=== PATIENT | male | born 1945 | race Caucasian/White ===

== ENCOUNTER 2016-07-11 09:25 | Inpatient (IN) | payer MEDICARE ==
[~2016-07-11] VITALS: Ht 175.3 cm; Wt 106.4 kg
[2016-07-11] MEDS ORDERED: SODIUM CHLORIDE FLUSH 10ML SYR IVF ONE (10:00)
[2016-07-11] MEDS ORDERED: ASPIRIN 81 MG TABLET CHEW PO ONE (10:00)
[2016-07-11] MEDS ORDERED: ASPIRIN 81 MG TABLET CHEW ONE (10:19)
[2016-07-11] MEDS ORDERED: ALBUTEROL/IPRATROPIUM 2.5MG/0.5MG, 3 ML NPPB SCH (10:30)
[2016-07-11 10:36] LABS: BLOOD UREA NITROGEN 25 mg/dL (7-18)
[2016-07-11 10:41] LABS: ASPARTATE AMINO TRANSFERASE 50 U/L (15-37)
[2016-07-11] MEDS ORDERED: BISACODYL 10 MG SUPP PR PRN (12:30)
[2016-07-11] MEDS ORDERED: SODIUM CHLORIDE FLUSH 10ML SYR IVF PRN (12:30)
[2016-07-11] MEDS ORDERED: ENALAPRILAT 1.25 MG/ML, 2ML IVPush PRN (12:30)
[2016-07-11] MEDS ORDERED: ACETAMINOPHEN 325 MG TABLET PO PRN (12:30)
[2016-07-11] MEDS ORDERED: DOCUSATE 100 MG CAPSULE PO PRN (12:30)
[2016-07-11] MEDS ORDERED: LABETALOL 5MG/ML 40ML VIAL IVPush PRN (12:30)
[2016-07-11] MEDS ORDERED: ONDANSETRON ODT 4 MG PO PRN (12:30)
[2016-07-11] MEDS ORDERED: hydrALAzine 20 MG/ML, 1ML IVPush PRN (12:30)
[2016-07-11] MEDS ORDERED: POLYETHYLENE GLYCOL 17 GM PACKET PO PRN (12:30)
[2016-07-11] MEDS ORDERED: AMLODIPINE 5 MG TABLET PO ONE (13:00)
[2016-07-11 13:16] VITALS: BP 183/114
[2016-07-11] MEDS: morphine SULFATE 10 MG/ML, 1ML IVPush PRN (13:18)
[2016-07-11] MEDS: FUROSEMIDE 40 MG/4 ML IV ONE ×2 (13:18→14:44)
[2016-07-11] MEDS: HEPARIN 5,000 UNITS/ML, 1ML SQ SCH ×2 (13:18→20:50)
[2016-07-11 14:01] LABS: HEPATITIS C VIRUS ANTIBODY Nonreactive (Nonreactive)
[2016-07-11] MEDS ORDERED: AMLO10TA2 PO (15:04)
[2016-07-11] MEDS ORDERED: LABETALOL 5MG/ML, 20ML ONE (15:42)
[2016-07-11 16:03] VITALS: BP 188/86
[2016-07-11] MEDS ORDERED: FUROSEMIDE 40 MG/4 ML IV ONE (17:00)
[2016-07-11 17:38] VITALS: BP 170/93
[2016-07-11 17:46] LABS: IS PT STATUS REG ER OR PRE ER? NO
[2016-07-11] MEDS: GUAIFENESIN/DM 100-10MG, 5ML UDC PO PRN (17:56)
[2016-07-11 20:48] VITALS: BP 150/87
[2016-07-12 00:57] LABS: IS PT STATUS REG ER OR PRE ER? NO
[2016-07-12 03:30] VITALS: BP 163/90
[2016-07-12] MEDS: HEPARIN 5,000 UNITS/ML, 1ML SQ SCH ×3 (05:02→21:50)
[2016-07-12] MEDS: ASPIRIN 81 MG TABLET EC PO SCH (05:02)
[2016-07-12] MEDS: GUAIFENESIN/DM 100-10MG, 5ML UDC PO PRN (05:08)
[2016-07-12 06:25] LABS: BLOOD UREA NITROGEN 21 mg/dL (7-18)
[2016-07-12 06:37] LABS: ASPARTATE AMINO TRANSFERASE 49 U/L (15-37)
[2016-07-12 06:51] VITALS: BP 163/103
[2016-07-12] MEDS ORDERED: POTASSIUM CHLORIDE 20 MEQ PACKET PO SCH (08:00)
[2016-07-12] MEDS: morphine SULFATE 10 MG/ML, 1ML IVPush PRN ×2 (08:29→17:32)
[2016-07-12] MEDS: CARVEDILOL 12.5 MG TABLET PO SCH ×2 (10:40→17:14)
[2016-07-12] MEDS: SPIRONOLACTONE 25 MG TABLET PO SCH (10:40)
[2016-07-12] MEDS: LISINOPRIL 5 MG TABLET PO SCH (10:40)
[2016-07-12] MEDS: FUROSEMIDE 40 MG/4 ML IV SCH ×2 (10:41→17:14)
[2016-07-12 13:25] VITALS: BP 140/84
[2016-07-12] MEDS: POTASSIUM CHLORIDE 20 MEQ PACKET PO SCH (17:14)
[2016-07-12 20:07] VITALS: BP 129/82
[2016-07-13 02:25] VITALS: BP 105/51
[2016-07-13 05:33] LABS: ASPARTATE AMINO TRANSFERASE 54 U/L (15-37); BLOOD UREA NITROGEN 31 mg/dL (7-18)
[2016-07-13 05:44] VITALS: BP 105/73
[2016-07-13] MEDS: FUROSEMIDE 40 MG/4 ML IV SCH ×2 (05:48→18:00)
[2016-07-13] MEDS: ASPIRIN 81 MG TABLET EC PO SCH (05:50)
[2016-07-13] MEDS: CARVEDILOL 12.5 MG TABLET PO SCH (05:50)
[2016-07-13] MEDS: POTASSIUM CHLORIDE 20 MEQ PACKET PO SCH ×2 (05:53→18:00)
[2016-07-13] MEDS: HEPARIN 5,000 UNITS/ML, 1ML SQ SCH ×3 (05:53→22:50)
[2016-07-13 07:36] VITALS: BP_SYST 164; BP_SYST 64; BP_DIAS 67
[2016-07-13] MEDS: SPIRONOLACTONE 25 MG TABLET PO SCH (07:59)
[2016-07-13 08:53] LABS: BLOOD UREA NITROGEN 31 mg/dL (7-18)
[2016-07-13] MEDS: LISINOPRIL 5 MG TABLET PO SCH (13:16)
[2016-07-13] MEDS ORDERED: FLUTICASONE/VILANTEROL 100-25MCG/INH INH ONE (14:00)
[2016-07-13 14:12] VITALS: BP 111/76
[2016-07-13] MEDS: morphine SULFATE 10 MG/ML, 1ML IVPush PRN (15:31)
[2016-07-13] MEDS: BENZONATATE 100 MG CAPSULE PO SCH ×2 (18:00→22:49)
[2016-07-13 18:30] VITALS: BP 98/57
[2016-07-13] MEDS: CARVEDILOL 3.125 MG TABLET PO SCH (18:30)
[2016-07-13] MEDS: GUAIFENESIN ER 600 MG TABLET PO SCH (22:49)
[2016-07-14 02:00] VITALS: BP 132/88
[2016-07-14] MEDS: morphine SULFATE 10 MG/ML, 1ML IVPush PRN ×3 (03:16→16:44)
[2016-07-14 05:46] VITALS: BP 149/87
[2016-07-14] MEDS: CARVEDILOL 3.125 MG TABLET PO SCH ×2 (05:51→16:46)
[2016-07-14] MEDS: ASPIRIN 81 MG TABLET EC PO SCH (05:51)
[2016-07-14] MEDS: FUROSEMIDE 40 MG/4 ML IV SCH ×2 (05:51→16:46)
[2016-07-14] MEDS: POTASSIUM CHLORIDE 20 MEQ PACKET PO SCH ×2 (05:51→16:46)
[2016-07-14] MEDS: HEPARIN 5,000 UNITS/ML, 1ML SQ SCH ×2 (05:52→16:46)
[2016-07-14 06:30] LABS: BLOOD UREA NITROGEN 39 mg/dL (7-18)
[2016-07-14 06:58] VITALS: BP 134/85
[2016-07-14] MEDS: LISINOPRIL 5 MG TABLET PO SCH (09:51)
[2016-07-14] MEDS: BENZONATATE 100 MG CAPSULE PO SCH ×3 (09:51→20:19)
[2016-07-14] MEDS: GUAIFENESIN ER 600 MG TABLET PO SCH ×2 (09:51→20:19)
[2016-07-14] MEDS: FLUTICASONE/VILANTEROL 100-25MCG/INH INH SCH (09:51)
[2016-07-14] MEDS: SPIRONOLACTONE 25 MG TABLET PO SCH (09:51)
[2016-07-14 13:51] VITALS: BP 124/87
[2016-07-14 18:21] VITALS: BP 135/86
[2016-07-15] MEDS: HEPARIN 5,000 UNITS/ML, 1ML SQ SCH ×3 (00:24→16:06)
[2016-07-15 01:57] VITALS: BP 138/71
[2016-07-15 04:57] LABS: BLOOD UREA NITROGEN 40 mg/dL (7-18)
[2016-07-15] MEDS: POTASSIUM CHLORIDE 20 MEQ PACKET PO SCH ×2 (06:00→16:07)
[2016-07-15] MEDS ORDERED: POTASSIUM CHLORIDE 20 MEQ TAB.ER.PRT ONE (06:17)
[2016-07-15 06:25] VITALS: BP 139/8
[2016-07-15] MEDS: ASPIRIN 81 MG TABLET EC PO SCH (06:27)
[2016-07-15] MEDS: CARVEDILOL 3.125 MG TABLET PO SCH (06:27)
[2016-07-15] MEDS: FUROSEMIDE 40 MG/4 ML IV SCH ×2 (06:27→16:07)
[2016-07-15 07:00] VITALS: BP 125/85
[2016-07-15] MEDS ORDERED: OXYcodone IR 5MG TABLET ONE (08:28)
[2016-07-15] MEDS ORDERED: OXYcodone IR 5MG TABLET PO PRN (08:30)
[2016-07-15] MEDS: LISINOPRIL 5 MG TABLET PO SCH (08:37)
[2016-07-15] MEDS: BENZONATATE 100 MG CAPSULE PO SCH ×3 (08:37→21:01)
[2016-07-15] MEDS: SPIRONOLACTONE 25 MG TABLET PO SCH (08:37)
[2016-07-15] MEDS: FLUTICASONE/VILANTEROL 100-25MCG/INH INH SCH (08:37)
[2016-07-15] MEDS: GUAIFENESIN ER 600 MG TABLET PO SCH ×2 (08:37→21:01)
[2016-07-15 14:10] VITALS: BP 128/71
[2016-07-15] MEDS: CARVEDILOL 6.25 MG TABLET PO SCH (16:06)
[2016-07-15] MEDS: OXYcodone IR 5MG TABLET PO PRN ×2 (16:06→23:15)
[2016-07-15 20:34] VITALS: BP 118/73
[2016-07-15 21:00] VITALS: BP 122/85
[2016-07-16 01:11] VITALS: BP 136/88
[2016-07-16] MEDS: HEPARIN 5,000 UNITS/ML, 1ML SQ SCH ×3 (01:13→17:16)
[2016-07-16] MEDS: ASPIRIN 81 MG TABLET EC PO SCH (05:24)
[2016-07-16] MEDS: CARVEDILOL 6.25 MG TABLET PO SCH (05:25)
[2016-07-16 05:45] LABS: BLOOD UREA NITROGEN 36 mg/dL (7-18)
[2016-07-16 05:50] LABS: ASPARTATE AMINO TRANSFERASE 60 U/L (15-37)
[2016-07-16 08:06] VITALS: BP 143/89
[2016-07-16] MEDS ORDERED: REGADENOSON 0.4 MG/5 ML SYRINGE ONE (08:12)
[2016-07-16] MEDS: FLUTICASONE/VILANTEROL 100-25MCG/INH INH SCH (10:29)
[2016-07-16] MEDS: FUROSEMIDE 40 MG/4 ML IV SCH ×2 (10:30→20:56)
[2016-07-16] MEDS: POTASSIUM CHLORIDE 20 MEQ PACKET PO SCH ×2 (10:30→20:57)
[2016-07-16] MEDS: LISINOPRIL 5 MG TABLET PO SCH (10:31)
[2016-07-16] MEDS: BENZONATATE 100 MG CAPSULE PO SCH ×3 (10:31→20:57)
[2016-07-16] MEDS: SPIRONOLACTONE 25 MG TABLET PO SCH (10:31)
[2016-07-16] MEDS: GUAIFENESIN ER 600 MG TABLET PO SCH ×2 (10:31→20:56)
[2016-07-16] MEDS: OXYcodone IR 5MG TABLET PO PRN (14:22)
[2016-07-16 14:45] VITALS: BP 109/73
[2016-07-16] MEDS: CARVEDILOL 12.5 MG TABLET PO SCH (17:16)
[2016-07-16 20:55] VITALS: BP 119/78
[2016-07-17 02:15] VITALS: BP 128/79
[2016-07-17] MEDS: HEPARIN 5,000 UNITS/ML, 1ML SQ SCH ×3 (02:19→18:02)
[2016-07-17 05:47] LABS: BLOOD UREA NITROGEN 33 mg/dL (7-18)
[2016-07-17] MEDS: ASPIRIN 81 MG TABLET EC PO SCH (06:25)
[2016-07-17] MEDS: CARVEDILOL 12.5 MG TABLET PO SCH ×2 (06:25→17:54)
[2016-07-17] MEDS: POTASSIUM CHLORIDE 20 MEQ PACKET PO SCH ×2 (06:25→18:03)
[2016-07-17] MEDS: FUROSEMIDE 40 MG/4 ML IV SCH ×2 (09:00→09:07)
[2016-07-17] MEDS: BENZONATATE 100 MG CAPSULE PO SCH ×2 (09:07→17:54)
[2016-07-17] MEDS: FLUTICASONE/VILANTEROL 100-25MCG/INH INH SCH (09:07)
[2016-07-17] MEDS: LISINOPRIL 5 MG TABLET PO SCH (09:08)
[2016-07-17] MEDS: GUAIFENESIN ER 600 MG TABLET PO SCH (09:08)
[2016-07-17] MEDS: SPIRONOLACTONE 25 MG TABLET PO SCH (09:08)
[2016-07-17] MEDS: FUROSEMIDE 40 MG TABLET PO SCH ×2 (10:11→17:00)
[2016-07-17] MEDS: OXYcodone IR 5MG TABLET PO PRN (10:19)
[2016-07-17 13:13] VITALS: BP 141/86
[2016-07-17 13:14] VITALS: BP 141/86
[2016-07-17] MEDS ORDERED: CARV12.543 PO (17:02)
[2016-07-17] MEDS ORDERED: FURO40TA6 PO (17:02)
[2016-07-17] MEDS ORDERED: POTA20TA6 PO (17:02)
[2016-07-17] MEDS ORDERED: OXYC5TAB3 PO (17:02)
[2016-07-17] MEDS ORDERED: LISI5TAB7 PO (17:02)
[2016-07-17] MEDS ORDERED: SPIR25TA PO (17:02)
[2016-07-17] MEDS ORDERED: ASPI-621 PO (19:13)
== END 2016-07-17 19:57 | disposition home health service (06) | DRG 682 ==
LOC: ED 10:20 → 5SO 12:17
PROVIDERS: ADMIT Internal Medicine
PROC: HZ34ZZZ Individual Counseling for Substance Abuse Treatment, Interpersonal (ICD-10-PCS; principal; 2016-07-11)
DX: N17.9 Acute kidney failure, unspecified (principal); I50.23 Acute on chronic systolic (congestive) heart failure; E43 Unspecified severe protein-calorie malnutrition; J96.00 Acute respiratory failure, unspecified whether with hypoxia or hypercapnia; I13.0 Hypertensive heart and chronic kidney disease with heart failure and stage 1 through stage 4 chronic kidney disease, or unspecified chronic kidney disease; F10.288 Alcohol dependence with other alcohol-induced disorder; I42.6 Alcoholic cardiomyopathy; K70.31 Alcoholic cirrhosis of liver with ascites; N18.3 Chronic kidney disease, stage 3 (moderate); Z66 Do not resuscitate; Z87.891 Personal history of nicotine dependence; Z91.19 Patient's noncompliance with other medical treatment and regimen; Z68.34 Body mass index [BMI] 34.0-34.9, adult; Z90.89 Acquired absence of other organs
CPT/HCPCS: 36415; 71010; 76700; 78452; 80048; 80053; 80074; 82728; 83735; 83880; 84439; 84443; 84484; 85025; 85610; 85730; 93005; 93017; 93306; J1644; J1940; J2785; A9502; C9898; J2270

== ENCOUNTER 2016-09-21 20:43 | Emergency (ER) | payer MEDICARE ==
[~2016-09-21] VITALS: Ht 175.3 cm; Wt 93.0 kg
[~2016-09-21 20:43] MED LIST: AMLO10TA2 PO; ASPI-621 PO; CARV12.543 PO; EPINEPHRINE SYRINGE 0.1 MG/ML, 10ML ONE; FURO40TA6 PO; LISI5TAB7 PO; OXYC5TAB3 PO; POTA20TA6 PO; SPIR25TA PO
[2016-09-21] MEDS ORDERED: CODE BLUE RESPONSE XX ONE (21:30)
== END 2016-09-21 22:44 | disposition expired ==
LOC: EDBD → MERGE 20:43 → ED 21:11
DX: I46.9 Cardiac arrest, cause unspecified (principal); I50.9 Heart failure, unspecified
CPT/HCPCS: 92950; 99285